=== PATIENT | male | born 1940 | race Caucasian/White ===

== ENCOUNTER 2021-09-01 14:01 | Day surgery (SDC) | payer MEDICARE, OTHER ==
[~2021-09-01] VITALS: Ht 180.3 cm; Wt 79.8 kg
[2021-09-01] MEDS ORDERED: LIDOCAINE 1% MDV 20ML VIAL As Ordered ONE (14:28)
[2021-09-01] MEDS ORDERED: ISOVUE-300 61% 50ML VIAL As Ordered ONE (14:29)
[2021-09-01] MEDS ORDERED: AMIODARONE HCL 150 MG/100 ML PREMIXED BAG (NEXTERONE) (J0282 PER 30MG) As Ordered ONE (14:30)
[2021-09-01] MEDS ORDERED: LIDOCAINE 2% 100MG/5ML SDV (FOR ANES.) As Ordered ONE (14:47)
[2021-09-01] MEDS ORDERED: fentaNYL 100 MCG/2 ML INJECTION (J3010) As Ordered ONE (14:47)
[2021-09-01] MEDS ORDERED: MIDAZOLAM INJ 2MG/2ML VIAL (J2250 PER 1MG) As Ordered ONE (14:47)
[2021-09-01] MEDS ORDERED: ONDANSETRON 4MG/2ML VIAL As Ordered ONE (14:47)
[2021-09-01] MEDS ORDERED: propofoL 200 MG/20 ML VIAL As Ordered ONE (14:47)
[2021-09-01] MEDS ORDERED: LOSA25TA14 PO (14:54)
[2021-09-01] MEDS ORDERED: XARE20TA PO (14:54)
[2021-09-01] MEDS ORDERED: ALLO100T PO (14:54)
[2021-09-01] MEDS ORDERED: CVS2500C PO (14:54)
[2021-09-01] MEDS ORDERED: LEVO112T2 PO (14:54)
[2021-09-01] MEDS ORDERED: MONT10TA10 PO (14:54)
[2021-09-01] MEDS ORDERED: ceFAZolin 2 GM/D5W 50 ML IV BAG (J0690 PER 500MG) As Ordered ONE (15:12)
[2021-09-01] MEDS ORDERED: ceFAZolin 1GM VIAL (J0690 PER 500MG) As Ordered ONE (15:32)
[2021-09-01] MEDS ORDERED: ACETAMINOPHEN 1000MG 100ML IV BTL (OFIRMEV) (J0131 PER 10MG) As Ordered ONE (15:51)
[2021-09-01 17:00] VITALS: BP 134/65
--- NOTE | 2021-09-01 17:26 | CR ---
CARDIOLOGY CONSULTATION DATE: 09/01/2021 INDICATION: Pacemaker battery depletion. Recurrent syncope. 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 Unaware of an abnormal EKG and had a stress study more than ten years ago which was reportedly negative. He has been experiencing intermittent chest heaviness for the past two years typically walking up a grade. Resolves within 5-10 minutes with rest alone, always accompanied by shortness of breath. No resting or nocturnal episodes. The frequency has been stable. Followed by Dr. 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 He had been treated with negative chronotropic therapy and Coumadin. He underwent dual-chamber pacemaker implantation in 2013 following AV saray ablation. He is currently pacemaker dependent. He has no awareness of his heart action despite documented bouts of paroxysmal atrial fibrillation. He has not suffered from any systemic thromboembolic event. He does experience fairly regular nosebleeds on Xarelto or anticoagulant therapy but no other significant GI bleeding. He has been followed through Dr. Brasher's office and his last check indicated June 16, 2021 and his pacemaker was at the end of life. A referral was received in my office today, September 01, 2021 for pacemaker battery replacement. OTHER CARDINAL CARDIAC SYMPTOMS: Chest discomfort: as mentioned above, no history of heartburn, reflux, dysphagia or GI bleeding. Shortness of breath: A chronic, nonproductive cough attributed to his asthma. Effort related dyspnea as mentioned above. History of sinusitis and sinus infections, has been receiving chronic Montelukast and bronchodilator therapy with good effect. History of obstructive sleep apnea but unable to wear CPAP effectively because of ill-fitting face mask. Admits to snoring and not sleeping well during the night. Denies orthopnea or nocturnal dyspnea. Nocturia x1. Describes a bout of rheumatic fever in childhood with murmur at that time but no subsequent murmur has been detected. Unaware of having had a prior echocardiogram. Chronic hypertension as mentioned above, unaware of cardiomegaly. Prior weight problem (weight 130 lb at age 17; max weight 205 lb one year ago, has last 40 lb in the past year, currently holding at 165 lb). Palpitations: He has never had an awareness of his heart action. Atrial fibrillation discovered incidentally at a followup primary care visit in 2003. He drinks two cups of caffeinated coffee each morning and one cup of caffeinated tea q.h.s. Avoids soda and alcohol. Lifelong nonsmoker. History of hypothyroidism for at least 20 years, currently on stable hormone replacement. He uses Flovent and inhalers but no qwvv-red-jgwqixc decongestants, pep pills or diet aids. Dizziness, falling, loss of consciousness: He has noticed a transient lightheadedness whenever straightening up after bending over, for the past few years, has experienced a half dozen episodes of abrupt loss of awareness and collapse. Loss of awareness is very brief, not associated with any injury fortunately, no incontinence or tongue biting. He has a clear sensorium upon regaining his awareness. His last episode was two weeks ago. Embolic phenomenon: He has had a problem with degenerative disc disease involving his cervical and lumbar spines. He has a chronic distal lower leg numbness being treated with vitamin B12 injections. No other lateralizing neurological deficits, flank pain, hematuria or blue toe syndrome. Claudication/peripheral venous disease: Denies effort related calf discomfort. Unaware of prior varicose veins, phlebitis or ankle swelling. CORONARY RISK FACTORS: Advanced age. Longstanding essential hypertension. He has been treated for hypercholesterolemia the past ten years. Nonsmoker with no history of diabetes mellitus or family history of premature coronary heart disease. REVIEW OF SYSTEMS: [place] any recent fever, chills or fatigue. Weight loss as described above. Upper and lower dentures. Respiratory as mentioned above. Cardiovascular as mentioned above. GI as mentioned above. Denies abdominal pain or change in bowel habit. Nocturia x1 as mentioned. 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 Recent renal function, he claims has been normal. No rashes, ecchymotic lesions, pallor or icterus. Chronic neck and low back pain as described above. Not subject to headaches. Wears corrective lenses. No obvious joint deformities. He does have some limited neck rotation following his cervical spine surgery. Some proximal muscle wasting but normal tone and strength. Normal gait. MEDICATIONS: Metoprolol 25 mg twice a day (not started), losartan 100 mg tablets one half tablet daily, Xarelto 20 mg daily, lovastatin 10 mg daily, montelukast 10 mg daily, allopurinol 300 mg tablets one half tablet daily, vitamin D 2000 international units daily, vitamin B12 injections 1000 mcg IM monthly. ALLERGIES: None known. PHYSICAL EXAMINATION: Heart rate 60 BPM, blood pressure 114/64. Respiratory rate 16, afebrile, O2 saturation 94% on room air. Weight 165 lb, height 5'11". EKG: It shows consistent AV sequentially paced rhythm at 60 BPM. Paced QRS complexes show a leftward axis with LBBB configuration and keeping with RV apical stimulation. IMPRESSION/PLAN: 1. Pacemaker battery depletion: From his history, I am not sure whether his syncopal spells may have been related to intermittent malcapture with his battery depletion. We have explained the need for urgency for battery replacement today. The indication, procedure and the potential risks were discussed with the patient who appears to understand and agree. This will be performed under monitored local anesthesia. 2. Recurrent syncope: As mentioned above, a phenomenon just the past few years. Fortunately not associated with any significant injury today. Abrupt onset without warning and clear sensorium upon awakening, certainly against the seizure activity. He does not have significant orthostatic blood pressure drop. 3. Chest pain (precordial): From his description, he does not offer any features to allow us to rule out myocardial ischemia as the origin of his complaint. In fact, his history is quite typical of angina. Fortunately, these episodes have been brief. It would be prudent to consider a Regadenoson pharmacological stress heart scan to define his coronary prognosis objectively in the near future. For the time being, he will remain on low dose beta markell therapy, Losartan, lovastatin, and his Xarelto. 4. AV block post-AV saray ablation: It would appear AV saray ablation was necessary in the past to control his ventricular response to atrial fibrillation, currently pacemaker dependent. His device appears to have functioned appropriately up until reaching his pacemaker. Recommend replacement interval. As mentioned above, the patient understands the need for urgency for battery replacement at this time. 5. Paroxysmal atrial fibrillation: Likely related to his age and chronic hypertension. According to his pacemaker interrogation, his ventricular response has been controlled in the 60s with bouts of atrial fibrillation which appear to be occurring fairly frequently but are somewhat nonsustained. I have reviewed the above impressions and plans with the patient who appears to understand and agree. Thank you, Jos Flower MD, [facility]
--- NOTE | 2021-09-01 18:41 | ECGEPIP ---
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
--- NOTE | 2021-09-01 18:47 | RO ---
OPERATIVE NOTE DATE OF OPERATION: 09/01/2021 PROCEDURES: 1. Explantation of depleted pacemaker pulse generator. 2. Testing of old atrial and ventricular pacing leads. 3. Implantation of new dual-chamber pulse generator. IMPLANTING HEARING STENOGRAPHER: Jos Lopez M.D. ANESTHESIOLOGIST: Dr. Oliver PREOPERATIVE DIAGNOSES: 1. Pacemaker battery depletion. 2. Atrioventricular (AV) block post-atrioventricular saray ablation-dual chamber pacemaker in situ. 3. Paroxysmal atrial fibrillation. POSTOPERATIVE DIAGNOSIS: 1. Pacemaker battery depletion. 2. Atrioventricular (AV) block post-atrioventricular saray ablation-dual chamber pacemaker in situ. 3. Paroxysmal atrial fibrillation. TYPE OF ANESTHESIA: Monitored local anesthesia. DESCRIPTION OF PROCEDURE: With the patient in a fasting state having signed informed consent and having received Ancef 2 grams IV premedication, the patient was taken to the operating theater. Numerous skin electrodes were applied to facilitate continuous electrocardiographic monitoring. Self-adhesive cardioverting/defibrillating/noninvasive pacing pads were applied in an anteroposterior configuration and connected to a bedside cardioverter defibrillator/noninvasive pacing system. The left subclavian region (the site of his old pacemaker) was prepped and draped in the usual fashion. The skin over the old pacemaker incision was infiltrated with 1% Xylocaine. A 5-cm linear incision was made over the same site. Careful dissection was then performed down to the depleted pacemaker, which was then explanted ([employer] model number K173, serial number [id number], implanted September 20, 2013). The old pacing leads were then disconnected and tested individually. The ventricular lead ([employer], model number 4470, serial number [id number], implanted September 20, 2013) measurements were focal and simulation thresholds 0.8 V/0.4 ms/impedance 740 ohms. There was no intrinsic R wave. The atrial lead ([employer], model number 4137, serial number [id number], implanted September 20, 2013) measurements were focal and stimulation thresholds 1.0 V/0.4 ms/impedance 450 ohms. The P wave amplitude measured 5.0 mV. These old pacing leads were then connected to a new dual chamber pulse generator ([employer] MRI compatible, model number VE0426, serial number [id number]) and appropriate DDD pacing was documented. The old pocket was thoroughly irrigated with an Ancef solution. The new dual chamber pulse generator was then placed in the pocket and secured in position with a suture through the upper right-hand corner of the Epoxy header. The subcutaneous tissues were then approximated using a running chromic suture and the skin was closed using erick. A dry dressing was applied and the patient was returned to the recovery room in good condition. COMPLICATIONS: No apparent complications. ESTIMATED BLOOD LOSS: Less than 5 ml. He will be able to be discharged to home once he is alert and ambulatory. We requested he continue to follow a modest salt intake restriction and low-fat, low-cholesterol diet. With his effort related chest discomfort and paced LBBB EKG QRS configuration, have recommended a pharmacological stress heart scan to objectively define his coronary prognosis. For the time being, he has been cautioned to try to prevent provoking his discomfort by being careful with his activity. He will remain on protective metoprolol 25 mg, p.o. b.i.d. and losartan 100 mg tablets 1/2 tablet daily. We have requested that he increase his lovastatin to 40 mg nightly at bedtime and he will resume his Xarelto 20 mg p.o. daily tomorrow evening. He will also continue on his allopurinol 300 mg tablets 1/2 tablet daily, levothyroxine 100 alternating with 112 mcg tablets daily, montelukast 10 mg nightly at bedtime, vitamin D 2000 IU daily, and vitamin B-12 injections 1000 mcg monthly. He has an appointment to come to our office on September 10, 2021 at 2:00 p.m. for wound check and staple removal. He has been encouraged to avoid getting his incision wet and perform only light activities of daily living with his left arm until his erick are removed in our office. He has also been encouraged to promptly report any abnormal erythema, swelling, or discharge. Jos Lopez MD, FACC
== END 2021-09-01 17:05 | disposition home or self-care (01) ==
LOC: M SDC 14:01
PROVIDERS: ATTEND Internal Medicine Cardiovascular Disease
DX: Z45.010 Encounter for checking and testing of cardiac pacemaker pulse generator [battery] (principal); I48.0 Paroxysmal atrial fibrillation; I44.1 Atrioventricular block, second degree; J45.909 Unspecified asthma, uncomplicated; I10 Essential (primary) hypertension; E03.9 Hypothyroidism, unspecified; G47.33 Obstructive sleep apnea (adult) (pediatric); Z79.01 Long term (current) use of anticoagulants; Z79.899 Other long term (current) drug therapy
CPT/HCPCS: 33228; 93005; C1785; J0131; J0690; J2250; J2405; J3010; U0002

== ENCOUNTER → 2025-04-03 | Outpatient (CLI) | payer MEDICARE ==
[~2025-04-03] MED LIST: ALLO100T PO; CVS2500C PO; LEVO112T2 PO; LOSA25TA13 PO; MONT10TA97 PO; XARE20TA PO
== END ==
LOC: M PLAIMG 10:28
PROVIDERS: ATTEND Physician Assistant
DX: I77.810 Thoracic aortic ectasia (principal); I08.1 Rheumatic disorders of both mitral and tricuspid valves